=== PATIENT | female | born 1995 | race Caucasian/White ===

== ENCOUNTER 2018-12-28 10:37 | Emergency (ER) | payer MEDICAID ==
[~2018-12-28] VITALS: Ht 154.9 cm; Wt 55.5 kg
[2018-12-28 10:48] VITALS: Ht 154.9 cm; Wt 55.5 kg
[2018-12-28] MEDS ORDERED: PRENAVITE1 TAB PO (10:49)
[2018-12-28] MEDS ORDERED: FISH OIL 1,0001 CA1 PO (10:49)
[2018-12-28 11:36] LABS: APPEARANCE CLOUDY (CLEAR); BILIRUBIN NEGATIVE (NEGATIVE); COLOR YELLOW (YELLOW); GLUCOSE NEGATIVE (NEGATIVE); KETONE NEGATIVE (NEGATIVE); NITRITE NEGATIVE (NEGATIVE); PROTEIN NEGATIVE (NEGATIVE); UROBILINOGEN NORMAL (NORMAL)
[2018-12-28 11:37] LABS: AMORPHOUS SEDIMENT >1+ /lpf (NONE SEEN); BACTERIA MODERATE /hpf (NONE SEEN); EPITHELIAL CELLS 0-5 /hpf (0-5); MUCUS <1+ /lpf (NONE SEEN); RED CELLS - URINE OCC /hpf (0-5); WHITE CELLS - URINE OCC /hpf (0-5)
[2018-12-28] MEDS ORDERED: MACROBID100 MG PO (12:40)
[2018-12-28 12:55] VITALS: BP 107/64
== END 2018-12-28 12:57 | disposition home or self-care (01) ==
LOC: D.ER 10:37
PROVIDERS: Family Medicine
DX: O26.90 Pregnancy related conditions, unspecified, unspecified trimester (principal)

== ENCOUNTER 2019-06-23 23:47 | Outpatient (CLI) | payer MEDICAID ==
[2018-12-28 10:48] VITALS: BMI 23.1
[~2019-06-23 23:47] MED LIST: FISH OIL 1,0001 CA1 PO; MACROBID100 MG PO; PRENAVITE1 TAB PO
[2019-06-24 00:33] LABS: BILIRUBIN NEGATIVE (NEGATIVE); GLUCOSE NEGATIVE (NEGATIVE); KETONE NEGATIVE (NEGATIVE); NITRITE NEGATIVE (NEGATIVE); SPECIFIC GRAVITY 1.015 (1.005-1.020); UROBILINOGEN NORMAL (NORMAL)
[2019-06-24 00:47] LABS: UDS - AMPHET NEGATIVE QUAL (NEGATIVE); UDS - BARB NEGATIVE QUAL (NEGATIVE); UDS - BENZO NEGATIVE QUAL (NEGATIVE); UDS - COCAINE NEGATIVE QUAL (NEGATIVE); UDS - OPIATE NEGATIVE QUAL (NEGATIVE); UDS - PCP NEGATIVE QUAL (NEGATIVE); UDS - THC NEGATIVE QUAL (NEGATIVE)
== END 2019-06-24 01:00 | disposition home or self-care (01) ==
LOC: D.LDO 23:47 → D.LD 23:48 → D.LDO 06-24 01:00
PROVIDERS: ATTEND Obstetrics & Gynecology
DX: O26.893 Other specified pregnancy related conditions, third trimester (principal); Z3A.36 36 weeks gestation of pregnancy

== ENCOUNTER → 2019-07-13 15:58 | Outpatient (CLI) | payer MEDICAID ==
[2018-12-28 10:48] VITALS: BMI 23.1
[~2019-07-13 15:58] MED LIST changes: +VALTREX500 MG PO
[2019-07-13 17:24] LABS: BILIRUBIN NEGATIVE (NEGATIVE); GLUCOSE NEGATIVE (NEGATIVE); KETONE MODERATE mg/dL (NEGATIVE); NITRITE NEGATIVE (NEGATIVE); UROBILINOGEN NORMAL (NORMAL)
[2019-07-13 17:29] LABS: UDS - AMPHET NEGATIVE QUAL (NEGATIVE); UDS - BARB NEGATIVE QUAL (NEGATIVE); UDS - BENZO NEGATIVE QUAL (NEGATIVE); UDS - COCAINE NEGATIVE QUAL (NEGATIVE); UDS - OPIATE NEGATIVE QUAL (NEGATIVE); UDS - PCP NEGATIVE QUAL (NEGATIVE); UDS - THC NEGATIVE QUAL (NEGATIVE)
--- NOTE | 2019-07-13 18:39 | NUR ---
DR. REYES NOTIFIED OF ASSESSMENT RESULTS. PATIENT IS A LOW RISK PER DR. REYES. DR. REYES STATED TO GIVE RESOURCES TO PATIENT AT TIME OF DISCHARGE. PATIENT DENIES ANY SUICIDAL THOUGHTS AND EXPRESSES A POSITIVE OUTLOOK FOR LIVING AND IS LOOKING FORWARD TO THE OF HER DAUGHTER.
== END | disposition home or self-care (01) ==
LOC: D.LDO 15:58
PROVIDERS: ATTEND Student in an Organized Health Care Education/Training Program
DX: O26.893 Other specified pregnancy related conditions, third trimester (principal); Z3A.39 39 weeks gestation of pregnancy

== ENCOUNTER 2019-07-14 08:16 | Inpatient (IN) | payer MEDICAID ==
[~2019-07-14] VITALS: Ht 154.9 cm; Wt 75.3 kg
[2019-07-14 08:56] VITALS: BP 100/54; Ht 154.9 cm; Wt 75.3 kg
[2019-07-14 11:22] LABS: HEMATOCRIT 29.8 % (36.0-48.0); HEMOGLOBIN 9.3 g/dL (12-16); MCH 28.8 pg (26.0-34.0); MCHC 31.2 g/dL (31.0-37.0); MCV 92.3 fL (80.0-100.0); MEAN PLATELET VOLUME 9.5 fL (7.4-10.4); RBC 3.23 10x6/uL (4.00-5.40); RDW 14.1 % (11.5-14.5); WBC 13.3 10x3/uL (4.8-10.8)
[2019-07-15 14:12] VITALS: BP 108/57
--- NOTE | 2019-07-15 14:12 | NUR ---
VSS. FUNDUS FIRM, MIDLINE AND U2 WITH SMALL AMT RUBRA LOCHIA, NO CLOTS NOTED. DENIES PAIN. ICE WATER PROVIDED. FOB BONDING WITH . PT REPORTS THAT SHE WILL BE ATTEMPTING TO BF SOON. BED IN LOW POSITION WITH SRUP X2. CALL LIGHT AND PHONE WITHIN REACH. WILL CONTINUE TO MONITOR.
--- NOTE | 2019-07-15 16:30 | NUR ---
RN TO BEDSIDE. REPORTS URGE TO VOID. UP TO BR WITH STANDBY ASSIST. CONTINUES TO REPORT FEELING LIGHTHEADED WITH STANDING. STEADY GAIT NOTED AND PT INSTRUCTED TO AVOID HOLDING BREATH, VOIDED LARGE AMT UNMEASURED VOID. DENIES LIGHTHEADEDNESS FOLLOWING VOID. PERICARE DONE PER PT. PADS AND PANTIES CHANGED. GOWN CHANGED. AMBULATORY W/C AWAITING AT BEDSIDE AND TAKEN TO ROOM 1257 FOR CONTINUED PP CARE.
[2019-07-15 16:36] LABS: HEMATOCRIT 33.2 % (36.0-48.0); HEMOGLOBIN 10.7 g/dL (12-16); MCH 28.7 pg (26.0-34.0); MCHC 32.2 g/dL (31.0-37.0); PLATELET COUNT 268 10x3/uL (130-400); RBC 3.73 10x6/uL (4.00-5.40); RDW 14.5 % (11.5-14.5); WBC 20.9 10x3/uL (4.8-10.8)
--- NOTE | 2019-07-15 16:47 | NUR ---
ORIENTED TO ROOM. DENIES LIGHTHEADEDNESS. ORIENTED TO ROOM AND CALL LIGHT USE, VERBALIZES UNDERSTANDING. BED IN LOW POSITION WITH SRUP X2. CALL LIGHT AND PHONE WITHIN REACH. NBN NOTIFIED. REINFORCED WITH PT NOT GETTING OOB WITHOUT ASSIST UNTIL NO LONGER FEELING LIGHTHEADED, VERBALIZES UNDERSTANDING.
[2019-07-15 17:03] LABS: LYMPHOCYTES 11 % (15-50); MONOCYTES 6 % (2-11); NEUTROPHILS 83 % (40-80); PLATELET ESTIMATE NORMAL
--- NOTE | 2019-07-15 19:30 | NUR ---
rEPORT GIVEN BY LOIS.
--- NOTE | 2019-07-15 20:15 | NUR ---
IN ROOM FOR ASSESSMENT. I EXPLAINED THAT FOR RIGHT NOW SHE WAS NOT TO GET UP ALONE DUE TO DIZZINESS..SHE WANTS TO TAKE A SHOWER BUT I EXPLAINED AGAIN THAT DUE TO DIZZINESS SHE COULD TAKE ONE TOMORROW. HER HEART SOUNDS WERE REGULAR AND NO MURMUR HEARD. BREATH SOUNDS CLEAR. BOWEL SOUNDS HEARD IN ALL QUADRANTS. HER FUNDUS IS ONE FINGER BELOW THE UMBILICUS AND IS FIRM. BLEEDING IS MIN TO MOD LOOKING AT HER PADS. SHE HAS NO PAIN AT THIS TIME. THE FOB IS IN THE ROOM WITH PT. VS CHARTED. EXPLAINED TO PT THAT I WOULD BE CHECKING ON HER DURING THE NIGHT.
[2019-07-15 20:32] VITALS: BP 107/67
--- NOTE | 2019-07-15 22:30 | NUR ---
RESTING QUIETLY WITHOUT C/O.
--- NOTE | 2019-07-16 00:15 | NUR ---
WALKED WITH PT TO THE BR. VOIDED A LARGE AMT. LOCHIA SMALL. FUNDUS FIRM. PT DOES NOT C/O ANY PAIN.
--- NOTE | 2019-07-16 02:00 | NUR ---
RESTING QUIETLY.. NO C/0
--- NOTE | 2019-07-16 04:08 | NUR ---
PT IS SLEEPING QUIETLY.
[2019-07-16 06:08] LABS: RAPID PLASMA REAGIN Non Reactive (Non Reactive)
--- NOTE | 2019-07-16 06:40 | NUR ---
PT IS RESTING WITH HER EYES CLOSED AT THIS TIME. FOB IS ASLEEP ON THE COUCH. BABY ASLEEP IN THE CRIB.
--- NOTE | 2019-07-16 08:15 | NUR ---
AM ASSESSMENT COMPLETED CHARTED TO FLOWSHEET. PT IS AWAKE and ALERT WITH TO BREAST. SHE RATES PAIN AT 2/10, ALSO SHE DENIES DIZZINESS WHEN SHE SAT UP AND STATES UNDERSTANDING TO CALL FOR NURSE BEFORE ATTEMPTING TO GET UP TO BATHROOM. FUNDUS FIRM AT U/1 WITH LIGHT BLEEDING NOTED TO ROSEMARY PAD, PT DENIES CLOTS WITH VOIDS AND STATES SHE IS CHANGING ROSEMARY PAD ONLY WITH VOIDS. SIG OTHER AT BEDSIDE, SIDE RAILS UP X 2 AND CALL LIGHT IS WITHIN HER REACH.
[2019-07-16 08:23] LABS: BASOPHILS 0.1 % (0-2); EOSINOPHILS 1.5 % (0-7); HEMATOCRIT 28.9 % (36.0-48.0); HEMOGLOBIN 9.5 g/dL (12-16); IMMATURE GRANULOCYTES 0.9 % (0-5); LYMPHOCYTES 17.1 % (15-50); MCH 28.9 pg (26.0-34.0); MCHC 32.9 g/dL (31.0-37.0); MCV 87.8 fL (80.0-100.0); MEAN PLATELET VOLUME 9.8 fL (7.4-10.4); NEUTROPHILS 69.4 % (40-80); PLATELET COUNT 279 10x3/uL (130-400); RBC 3.29 10x6/uL (4.00-5.40); RDW 14.9 % (11.5-14.5)
[2019-07-16 08:25] LABS: WBC 15.6 10x3/uL (4.8-10.8)
--- NOTE | 2019-07-16 10:27 | NUR ---
INFANT TAKEN TO ROOM VIA CRIB FROM NURSERY, PT RESTING ON RIGHT SIDE WITH EYES CLOSED, BANDS VERIIFIED WITH FOB.
--- NOTE | 2019-07-16 12:00 | NUR ---
PT AWAKE AND SITTING UP IN BED, DENIES DIZZINESS OR BEING LIGHT HEADED. RATES PAIN AT 0/10. CLEAN INFANT BLANKETS AND SHIRT PROVIDED REQUESTED.
--- NOTE | 2019-07-16 14:30 | NUR ---
PT DENIES PAIN OR DISCOMFORT. ADDITIONAL ROSEMARY PADS AND MESH BRIEFS PLACED IN BATHROOM PT REQUESTED. INFANT IN CRIB AT BEDSIDE. CALL LIGHT IN REACH.
--- NOTE | 2019-07-16 16:45 | NUR ---
CALLED TO ROOM, PT ASK THAT SIG OTHER RECIEVED DIETARY TRAY, MESSAGE SENT THRU [facility]. NO OTHER NEED AT THIS TIME.
--- NOTE | 2019-07-16 18:00 | NUR ---
LARGE CUP OF ICE REQUESTED, RATES PAIN AT 3/10 BUT DENIED OFFERED PAIN MED. INFANT IN CRIB AT BEDSIDE, SIG OTHER ALSO PRESENT. CALL LIGHT IN REACH.
--- NOTE | 2019-07-16 19:15 | NUR ---
REPORT GIVEN BY TARIK PALACIOS RN
[2019-07-16 20:00] VITALS: BP 115/60
--- NOTE | 2019-07-16 20:45 | NUR ---
ASSESSMENT COMPLETED. PT STATES SHE IS VOIDING WELL WITHOUT PROBLEMS. HER FUNDUS IS FIRM. BLEEDING IS SMALL. SHE IS BONDING VERY WELL WITH HER BABY WELL THE FOB. HER HEART SOUNDS ARE REGULAR, LUNGS CLEAR, BOWEL SOUNDS HEARD IN ALL QUADRANTS. SHE IS UP AD BRIANNA IN HER ROOM.
--- NOTE | 2019-07-16 22:00 | NUR ---
ROUNDS MADE. PT STATES SHE IS NOT HURTING AND THAT SHE DOES NOT NEED ANYTHING.
--- NOTE | 2019-07-16 22:21 | NUR ---
C/O PERINEAL PAIN , IBUPROFIN 600 MG PO FOR DISCOMFORT
--- NOTE | 2019-07-17 | NUR ---
PT IS RESTING WITH HER EYES CLOSED. NO C/O
--- NOTE | 2019-07-17 02:00 | NUR ---
PT IS RESTING WITH HER EYES CLOSED. FOB IS SLEEPING ON THE COUCH. BABY SLEEPING IN THE CRIB. NO C/O NO NEEDS
--- NOTE | 2019-07-17 04:00 | NUR ---
PT IS SLEEPING. BABY IS IN THE NURSERY.
--- NOTE | 2019-07-17 06:00 | NUR ---
PT IS RESTING WITH HER EYES CLOSED. NO C/O OR NEEDS
--- NOTE | 2019-07-17 08:45 | NUR ---
AM ASSESSMENT COMPLETED SEEN ON FLOWSHEET. PT DENIES PAIN OR DISCOMFORT AT THIS TIME AND IS WALKING ABOUT ROOM. SALINE LOCK REMOVED INTACT FROM LEFT FOREARM. DENIES NEEDS OR CONCERNS AT THIS TIME.
--- NOTE | 2019-07-17 09:45 | NUR ---
LARGE ICE WATER REQUESTED.
--- NOTE | 2019-07-17 10:10 | NUR ---
DR ALAN ON UNIT WITH ROUNDS MADE.
--- NOTE | 2019-07-17 11:20 | NUR ---
RHOGAM GIVEN IM TO RIGHT ARM. ALSO GIVEN DEPO PROVERA TO RIGHT OUTER HIP. VERBAL AND WRITTEN DISCHARGE ORDERS GONE OVER WITH PT, SHE STATES UNDERSTANDING OF IBURPROFEN USE FOR PAIN CONTROL. ALSO S/S OF HEMORRAGE AND ELEVATED BLOOD PRESSURE REVIEWED. PT ASK FOR IBUPROFEN BEFORE SHE LEAVES AND WILL CALL AFTER DISCHARGE IS COMPLETED.
--- NOTE | 2019-07-17 12:56 | NUR ---
MMR TO RIGHT UPPER ARM SCANNED TO EMAR. PT ALSO GIVEN IBUPROFEN REQUESTED FOR PAIN AT SHE RATES AT 2/10. SIG OTHER PROVIDED WITH WORK EXCUSE THAT STATES PT D/C TODAY AND HE MAY RETURN TO WORK TODAY. DENIES ANY OTHER QUESTIONS OR NEEDS AT THIS TIME.
--- NOTE | 2019-07-17 12:57 | NUR ---
NURSERY NOTIFIED THAT PT IS OK TO LEAVE AFTER DISCHARGE HAS BEEN COMPLETED.
--- NOTE | 2019-07-17 15:15 | NUR ---
PT CALLS OUT THAT INFANT HAS BEEN DISCHARGED. WHEELCHAIR TAKEN TO ROOM BUT SHE DENIES AND ASK IF OK TO WALK OUT. THIS RN WALKS WITH PT AND SIG OTHER WHO HAS SECURED INTO CARRIER. HOME BY PRIVATE CAR WITH FAMILY
== END 2019-07-17 15:15 | disposition home or self-care (01) | DRG 807 ==
LOC: D.LDO 08:16 → D.LD 10:40
PROVIDERS: ADMIT Student in an Organized Health Care Education/Training Program; ATTEND Student in an Organized Health Care Education/Training Program
PROC: 10E0XZZ Delivery of Products of Conception, External Approach (ICD-10-PCS; principal; 2019-07-15)
PROC: 3E033VJ Introduction of Other Hormone into Peripheral Vein, Percutaneous Approach (ICD-10-PCS; 2019-07-15)
DX: O75.89 Other specified complications of labor and delivery (principal); Z37.0 Single live birth; Z3A.39 39 weeks gestation of pregnancy

== ENCOUNTER 2020-08-27 20:12 | Emergency (ER) | payer MEDICAID ==
[~2020-08-27] VITALS: Ht 154.9 cm; Wt 50.0 kg
[2020-08-27 20:17] VITALS: Ht 154.9 cm; Wt 50.0 kg
[2020-08-27 21:01] LABS: BASOPHILS 0.4 % (0-2); EOSINOPHILS 1.5 % (0-7); HEMATOCRIT 41.5 % (36.0-48.0); HEMOGLOBIN 14.1 g/dL (12-16); IMMATURE GRANULOCYTES 0.2 % (0-5); LYMPHOCYTE ABS# 2.41 10x3/uL (1.18-3.74); LYMPHOCYTES 24.7 % (15-50); MCH 30.5 pg (26.0-34.0); MCV 89.8 fL (80.0-100.0); MEAN PLATELET VOLUME 9.7 fL (7.4-10.4); MONOCYTES 9.6 % (2-11); NEUTROPHIL ABS# 6.19 10x3/uL (1.56-6.13); NEUTROPHILS 63.6 % (40-80); RBC 4.62 10x6/uL (4.00-5.40); RDW 11.9 % (11.5-14.5); WBC 9.8 10x3/uL (4.8-10.8)
[2020-08-27 21:02] LABS: PLATELET COUNT 358 10x3/uL (130-400)
[2020-08-27 21:03] LABS: HCG URINE NEGATIVE (NEGATIVE)
[2020-08-27 21:06] LABS: CALC OSMOLALITY 275 mosm/kg (275-300); CALCIUM 9.3 mg/dL (8.5-10.1); CARBON DIOXIDE 23.1 mmol/L (21.0-32.0); CHLORIDE - SERUM 102 mmol/L (98-107); CREATININE - SERUM 0.8 mg/dL (0.6-1.3); GLUCOSE 90 mg/dL (74-106); POTASSIUM - SERUM 3.5 mmol/L (3.5-5.1); SODIUM 139 mmol/L (136-145); UREA NITROGEN 6 mg/dL (7-18); eGFR NON AFRICAN AMERICAN > 90 mL/min (90-120)
[2020-08-27 21:12] LABS: ALBUMIN 4.2 g/dL (3.4-5.0); ALKALINE PHOSPHATASE 52 U/L (30-120); ALT (SGPT) 20 U/L (10-68); BILIRUBIN - TOTAL 0.62 mg/dL (0.2-1.3); C-REACTIVE PROTEIN 5.8 mg/dL (0.0-0.9); PROTEIN - SERUM 8.1 g/dL (6.4-8.2)
[2020-08-27 21:23] LABS: UDS - AMPHET POSITIVE QUAL (NEGATIVE); UDS - BARB NEGATIVE QUAL (NEGATIVE); UDS - BENZO POSITIVE QUAL (NEGATIVE); UDS - COCAINE NEGATIVE QUAL (NEGATIVE); UDS - OPIATE POSITIVE QUAL (NEGATIVE); UDS - PCP NEGATIVE QUAL (NEGATIVE); UDS - THC POSITIVE QUAL (NEGATIVE)
[2020-08-27] MEDS ORDERED: AUGMENTIN 875-11 TAB PO (22:24)
[2020-08-27 23:16] VITALS: BP 117/71
== END 2020-08-27 23:16 | disposition home or self-care (01) ==
LOC: D.ER 20:12
PROVIDERS: Family Medicine
DX: K04.7 Periapical abscess without sinus (principal)